=== PATIENT | male | born 1990 | race Caucasian/White ===

== ENCOUNTER 2016-05-06 13:24 | Emergency (ER) | payer OTHER ==
--- NOTE | 2016-05-06 14:56 | DX ---
Right Hand, Three Views History: Pain post trauma. Swelling versus thumb dislocation. Hand trauma 1 week ago. Findings: There is soft tissue swelling of the level of the first metacarpal phalangeal joint. 2 surg ical retention clips are present along the proximal radial aspect of the proximal phalanx of the thum b. Mineralization is normal. There is no periostitis, soft tissue calcification , gas or foreign body or underlying erosion. No fracture or dislocation is identified. Impression: Soft tissue swelling at the level of the first metacarpal phalangeal joint. No dislocatio n.
--- NOTE | 2016-05-06 15:21 | EDPHY ---
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 Approximately 1 week ago he hurt it while playing rugby. He has had pain and swelling since then. Worse with movement, better with rest. He denies other associated signs or symptoms, no open wounds, no paresthesias, no abnormal coolness reported. No other trauma to the body reported. - Personal History Current Tetanus Diphtheria and Acellular Pertussis (TDAP): Yes - Medical/Surgical History Other PMH: r thumb, arm ,knee, l arm plate and screws surgery - Social History Smoking Status: Never smoked - Physical Exam Exam: General: Alert, nontoxic Skin: Contusion to the thenar eminence and thumb region. No open wounds. Musculoskeletal: Tenderness to the thenar eminence and proximal thumb. Discomfort moving it. The rest of the hand, wrist including the snuffbox are nontender. He is moving the other digits and wrist without difficulty. Vascular: Radial pulses 2+. Capillary refill in all digits. Neurologic: Sensation intact throughout the right hand. Constitutional: Initial Vital Signs Temperature (C) 36.4 C 05/06/16 14:10 Heart Rate 52 L 05/06/16 14:10 Respiratory Rate 16 05/06/16 14:10 Blood Pressure 119/63 05/06/16 14:10 O2 Sat (%) 96 05/06/16 14:10 O2 Delivery Mode Room Air Allergies/Adverse Reactions: No Known Allergies Allergy (Unverified 05/06/16 14:09) Home Medications: Medication Instructions Recorded NK [No Known Home Meds] 05/06/16 Medical Decision Making - Diagnostics Imaging: X-ray of the right hand shows no fracture dislocation, soft tissue swelling is noted Procedures: Procedure: Splint placement. A Velcro thumb spica splint was applied. After application of the splint I returned and re-examined the patient. The splint was adequately immobilizing the joint and distal to the splint the patient's circulation and sensation was intact. ED Course/Re-evaluation: Patient seen under the supervision of my secondary supervising physician Dr. Bhumika Vogt. Patient presents to the emergency department for a right hand injury. His hand is neurovascularly intact. X-rays negative for fracture or dislocation. He is splinted. He is referred to hand surgery for recheck. Home care is discussed. Return precautions are given. Patient voiced understanding and agreement with plan. Differential Diagnosis: Included but not limited to contusion, sprain, strain, fracture Departure - Departure Disposition: Home, Routine, Self-Care Clinical Impression: Thumb sprain Qualifiers: Encounter type: initial encounter Sprain of finger site: other site Laterality : right Qualifier Code: (S63.698A) Other sprain of other finger, initial encounter Condition: Good Instructions: Finger Sprain (ED) Additional Instructions: Follow-up with a hand surgeon next week for recheck If symptoms worsen or new symptoms develop return to the emergency department for recheck Referrals: NONE *PRIMARY CARE P,. [Primary Care Provider] - As per Instructions Skyler Kumar MD [Medical Doctor] - As per Instructions
[2016-05-06 15:35] VITALS: BP 126/84; PULSE 54; RESP 14; TEMP 98.8; O2SAT 95
== END 2016-05-06 15:35 | disposition home or self-care (01) ==
DX: S63.698A Other sprain of other finger, initial encounter (principal); X58.XXXA Exposure to other specified factors, initial encounter; Y99.8 Other external cause status; Y93.63 Activity, rugby
CPT/HCPCS: L3807